=== PATIENT | female | born 1940 | race Caucasian/White ===

== ENCOUNTER → 2017-03-17 | Outpatient (CLI) | payer MEDICARE, BC ==
--- NOTE | 2017-03-17 11:04 | US ---
EXAMINATION TYPE: US abdomen complete DATE OF EXAM: 03/17/2017 10:02 AM COMPARISON: NONE CLINICAL HISTORY: K82.9 Disease of gallbladder. Abdominal pain EXAM MEASUREMENTS: Liver Length: 16.8 cm Gallbladder Wall: 0.3 cm CBD: 0.4 cm Spleen: 9.1 cm Right Kidney: 9.8 x 5.3 x 3.7 cm Left Kidney: 9.3 x 4.9 x 4.1 cm Pancreas: obscured by overlying bowel content Liver: visualized portions appear slightly heterogeneous Gallbladder: gallstones Evidence for sonographic Calles's sign: no CBD: wnl Spleen: granulomas Right Kidney: cystic areas, largest = 1.7 x 1.8 x 1.9cm Left Kidney: limited evaluation due to overlying bowel Upper IVC: wnl Abd Aorta: visualized portions appear wnl *Technical limitations due to patient's body habitus and large amount of overlying bowel content The liver is heterogenous. The intrahepatic portion of the IVC and proximal abdominal aorta are withi n normal limits. There is evidence of cholelithiasis. Common bile duct is unremarkable. The visual ized portions of the pancreas are homogenous. The spleen demonstrates calcified granulomas. Limited evaluation of the left kidney given overlying bowel content. Multiple cysts right kidney the largest measures about 1.7 x 1.8 x 1.9 cm. IMPRESSION: 1. Probable fatty liver. 2. Cholelithiasis. 3. Right renal cysts.
--- NOTE | 2017-03-18 07:50 | MM ---
Reason for exam: screening (asymptomatic). Last mammogram was performed 1 year and 11 months ago. History: Patient is postmenopausal. Benign core biopsy of the left breast, 1996. Took hormonal contraceptives for 10 years. Physical Findings: A clinical breast exam by your physician is recommended on an annual basis and results should be correlated with mammographic findings. MG 3D Screening Mammo W/Cad Bilateral CC and MLO view(s) were taken. Prior study comparison: April 21, 2015, bilateral MG screening mammo w CAD. July 06, 2013, bilateral digital screening mammo w/CAD. There are scattered fibroglandular densities. Benign calcifications. There is no discrete abnormality. No significant changes when compared with prior studies. ASSESSMENT: Benign, BI-RAD 2 RECOMMENDATION: Routine screening mammogram of both breasts in 1 year.
== END | disposition home or self-care (01) ==
LOC: RADUSWWP 08:55
PROVIDERS: ATTEND Family Medicine
DX: Z12.31 Encounter for screening mammogram for malignant neoplasm of breast (principal); K80.20 Calculus of gallbladder without cholecystitis without obstruction; Q61.02 Congenital multiple renal cysts
CPT/HCPCS: 77063; 76700; G0202

== ENCOUNTER → 2017-06-12 | Outpatient (CLI) | payer MEDICARE, BC ==
[~2017-06-12] MED LIST: DENOSUMAB 60 MG/ML 1 ML SYRINGE SQ ONE
[2017-06-12 14:19] VITALS: BP 140/74; PULSE 77; RESP 16; TEMP 97.8
== END | disposition home or self-care (01) ==
LOC: PROCWHC3 14:07
PROVIDERS: ATTEND Family Medicine
DX: M81.0 Age-related osteoporosis without current pathological fracture (principal)
CPT/HCPCS: 96372; J0897

== ENCOUNTER → 2017-09-16 | Outpatient (CLI) | payer MEDICARE, BC ==
--- NOTE | 2017-09-16 12:22 | XR ---
EXAMINATION TYPE: XR chest 2V DATE OF EXAM: 09/16/2017 COMPARISON: 10/05/2014 HISTORY: 77-year-old female with shortness of breath, dyspnea, and bronchitis TECHNIQUE: Frontal and lateral views FINDINGS: Heart is normal size. Aorta and pulmonary vasculature within normal limits. Asymmetric right hilar pr ominence may be summation artifact. Large hiatal hernia containing air-fluid level. Some focal periph eral left midlung opacity appears new. No pleural effusion. IMPRESSION: 1. Asymmetric right hilar prominence appears more defined but could represent summation shadow or und erlying pulmonary artery hypertension. Contrast-enhanced CT can exclude a hilar mass or lymphadenopat hy. 2. Possible patchy infiltrate at the peripheral left mid lung can also be evaluated by CT. 3. Large hiatal hernia with the stomach in the mid to lower thorax.
== END | disposition home or self-care (01) ==
LOC: RADXRMAIN 10:14
PROVIDERS: ATTEND Family Medicine
DX: K44.9 Diaphragmatic hernia without obstruction or gangrene (principal)
CPT/HCPCS: 71020

== ENCOUNTER → 2018-01-08 | Outpatient (CLI) | payer MEDICARE, BC ==
[~2018-01-08] MED LIST changes: +DENOSUMAB 60 MG/ML 1 ML SYRINGE SQ NR; -DENOSUMAB 60 MG/ML 1 ML SYRINGE SQ ONE
[2018-01-08 15:03] VITALS: BP 128/78; PULSE 91; RESP 16; TEMP 97.9
== END | disposition home or self-care (01) ==
LOC: PROCWHC3 14:40
PROVIDERS: ATTEND Family Medicine
DX: M81.0 Age-related osteoporosis without current pathological fracture (principal)
CPT/HCPCS: 96372; J0897

== ENCOUNTER 2018-02-23 11:06 | Day surgery (SDC) | payer MEDICARE, BC ==
[2018-02-19 10:03] VITALS: BMI 31.2
[~2018-02-23 11:06] MED LIST changes: -DENOSUMAB 60 MG/ML 1 ML SYRINGE SQ NR; +LACTATED RINGERS 1,000 ML IV SCH; +LIDOCAINE 1% 20 ML VIAL (10MG/ML) FOR IV START INTRADERMA PRN
[2018-02-23 11:33] VITALS: RESP 16; TEMP 97.5
[2018-02-23 11:41] LABS: Glucose,Whole Blood 107 mg/dL (75-99)
[2018-02-23] MEDS ORDERED: PROPOFOL 10 MG/ML 20 ML VIAL IV ONE (12:18)
--- NOTE | 2018-02-23 13:06 | P.PCN ---
Date of Procedure: 02/23/18 Procedure(s) Performed: Procedures: 1. Esophagogastroduodenoscopy and biopsy. 2. Total colonoscopy. Preoperative diagnosis: Gastroesophageal reflux disease and family history of colon cancer. Postoperative diagnosis: 1. Moderately sized hiatal hernia with low-grade distal esophagitis. 2. Mild antral gastritis. 3. Sigmoid diverticulosis with no evidence of acute diverticulitis, strictures, polyps or cancer. 4. Biopsies obtained from the esophagus. Preparation: HalfLytely prep. Sedation: Was provided by anesthesia. Brief clinical history: The patient is an 78-year-old female who is scheduled for this evaluation because of chronic reflux symptoms and family history of colon cancer in her sister. Her prior exam was in October 2012. The patient has no abdominal complaints, bleeding or anemia. Procedure: With the patient on her left lateral decubitus position and after informed consent and adequate sedation, I passed the Olympus-GIF 160 video upper endoscope through the cricopharyngeus down the esophagus GE junction was around 34-35 cm from the incisors and there was a moderately sized hiatal hernia. The distal esophagus showed LA grade B distal esophagitis but there were no strictures or Almanza's esophagus. The endoscope was then passed into the stomach which was insufflated with air and inspected in detail including the retroflex view in the cardia. There was some mottling and erythema in the antrum but no ulcers or erosions. Pyloric channel, duodenal bulb, post bulbar area and descending duodenum appeared within normal limits. Because of her symptoms and findings I obtained biopsies from the esophagus before the endoscope was withdrawn. I then proceeded to do colonoscopy. Perianal area did not show any fissures or fistulas. There were no masses felt on digital rectal examination. The Olympus CFQ 160L video colonoscope was then inserted in the rectum in the usual fashion and advanced to the cecum. There were multiple diverticular orifices noted scattered in the sigmoid with no evidence of acute diverticulitis or strictures. No polyps or tumors were seen. The mucosa appeared healthy. I retroflexed the endoscope in the rectum before the endoscope was withdrawn. The patient tolerated the procedure well. Plan: The patient was reassured. Will await biopsy results and make further plans based on her course and biopsy results. At her age, I did not recommend further screening for colon cancer and that can be kept as a contingency based on her course and overall health in the future in the future. She will follow- up with you as planned.
[2018-02-23 13:17] VITALS: BP 129/84; PULSE 69
== END 2018-02-23 14:03 | disposition home or self-care (01) ==
LOC: ORWHC2ENDO 11:06
DX: K22.10 Ulcer of esophagus without bleeding (principal); K21.0 Gastro-esophageal reflux disease with esophagitis; K57.30 Diverticulosis of large intestine without perforation or abscess without bleeding; K29.70 Gastritis, unspecified, without bleeding; I10 Essential (primary) hypertension; K44.9 Diaphragmatic hernia without obstruction or gangrene; E78.5 Hyperlipidemia, unspecified; I25.10 Atherosclerotic heart disease of native coronary artery without angina pectoris; M19.90 Unspecified osteoarthritis, unspecified site; J45.909 Unspecified asthma, uncomplicated; Z96.653 Presence of artificial knee joint, bilateral; Z79.899 Other long term (current) drug therapy; Z80.0 Family history of malignant neoplasm of digestive organs; Z85.828 Personal history of other malignant neoplasm of skin; Z86.718 Personal history of other venous thrombosis and embolism
CPT/HCPCS: 88305; 88312; 43239; 45378; J2704

== ENCOUNTER → 2018-08-20 | Outpatient (CLI) | payer MEDICARE, BC ==
[~2018-08-20] MED LIST changes: +DENOSUMAB 60 MG/ML 1 ML SYRINGE SQ ONE; -LACTATED RINGERS 1,000 ML IV SCH; -LIDOCAINE 1% 20 ML VIAL (10MG/ML) FOR IV START INTRADERMA PRN
[2018-08-20 14:22] VITALS: BP 129/75; PULSE 76; RESP 16; TEMP 98.3
== END | disposition home or self-care (01) ==
LOC: PROCWHC3 13:56
PROVIDERS: ATTEND Family Medicine
DX: M81.0 Age-related osteoporosis without current pathological fracture (principal)
CPT/HCPCS: 96372; J0897

== ENCOUNTER → 2018-11-25 | Outpatient (CLI) | payer MEDICARE, BC ==
--- NOTE | 2018-11-25 16:42 | BD ---
EXAMINATION TYPE: Axial Bone Density DATE OF EXAM: 11/25/2018 CLINICAL HISTORY: Height: 59 inches Weight: 168 FRAX RISK QUESTIONS: Alcohol (3 or more units per day): no Family History (Parent hip fracture): no Glucocorticoids (More than 3mos): inhaler perhaps "a couple times a month" patient unsure if inhaler has steroids (Ex: prednisone, prednisolone, methylprednisolone, dexamethasone, and hydrocortisone). History of Fracture in Adulthood: no, forearm as child Secondary Osteoporosis: 1. Type 1 Diabetes: no 2. Hyperthyroidism: no 3. Menopause before 45: no 4. Malnutrition: no 5. Chronic liver disease: no Rheumatoid Arthritis: no Current Tobacco Use: no RISK FACTORS HISTORY OF: Family History of Osteoporosis: probably mother Active: yes Diet low in dairy products/other sources of calcium: no Postmenopausal woman: yes Take estrogen and/or progesterone medications: not now How long: hormonal contraceptives about 10 years Lost more than 2 inches in height since high school: unsure, states height may have been about 61 inc hes at one time Frequent falls: no Poor Health: no Hyperparathyroidism: no Adrenal Insufficiency: no MEDICATIONS: Prednisone or other steroids: unsure if inhaler has steroids Thyroid Medications: no Osteoporosis Medications:yes Which medication: Prolia How Long: several years Additional Medications: blood pressure meds, vitamins, cholesterol Additional History: bilateral knee replacement EXAM MEASUREMENTS: Bone mineral densitometry was performed using the [employer] System. Bone mineral density as measured about the Lumbar spine is: ----- L1-L4(G/cm2): 1.137 T Score Values are as follows: ----- L2: -1.0 ----- L3: 0.0 ----- L4: -0.4 ----- L1-L4: -0.4 Bone mineral density has: Decreased -2.0% since study of: 04/21/2015 Bone mineral density about the R hip (g/cm2): 0.936 Bone mineral density about the L hip (g/cm2): 0.884 T Score values are as follows: -----R Neck: -0.7 -----L Neck: -1.1 -----R Total: 0.5 -----L Total: 0.2 Bone mineral density has: Increased 1.5 % since study of: 04/21/2015 IMPRESSION: Normal (Values between +1 and -1 indicate normal bone mass). Consider repeating this study in 5 year s or sooner if there is some new clinical indication. NOTE: T-SCORE=SD OF THE YOUNG ADULT MEAN.
== END | disposition home or self-care (01) ==
LOC: RADBDWWP 13:02
PROVIDERS: ATTEND Family Medicine
DX: N95.1 Menopausal and female climacteric states (principal)
CPT/HCPCS: 77080

== ENCOUNTER → 2019-03-05 | Outpatient (CLI) | payer MEDICARE, BC ==
[2019-03-05 14:15] VITALS: BP 172/80; PULSE 84; RESP 16; TEMP 98.6
== END | disposition home or self-care (01) ==
LOC: PROCWHC3 14:08
PROVIDERS: ATTEND Family Medicine
DX: M81.0 Age-related osteoporosis without current pathological fracture (principal)
CPT/HCPCS: 96372; J0897

== ENCOUNTER → 2019-08-30 | Outpatient (CLI) | payer MEDICARE, BC ==
--- NOTE | 2019-08-30 07:54 | US ---
EXAMINATION TYPE: US gallbladder DATE OF EXAM: 08/30/2019 COMPARISON: NONE CLINICAL HISTORY: 79-year-old female K81.9 Cholecystitis; K80.80 Cholelithiasis. cholelithiasis. TECHNIQUE: Multiple sonographic images of the right upper quadrant are obtained. FINDINGS: AQUATICS LIFEGUARD NOTES: Exam limitations due to body habitus and bowel gas. EXAM MEASUREMENTS: Liver Length: 15 cm Gallbladder Wall: .2 cm CBD: .4 cm Right Kidney: 9.2 x 3.0 x 2.8 cm Pancreas: Obscured by bowel gas Liver: Limited views show no focal lesion. Gallbladder: Suspected couple calculi measuring up to 5 mm. No abnormal distention, wall thickening, or pericholecystic fluid. Evidence for sonographic Calles's sign: No CBD: wnl Right Kidney: Cystic area upper pole 2.1 x 2.0 x 2.3 cm. No hydronephrosis. IMPRESSION: 1. Exam limitations due to body habitus and bowel gas. 2. Suggestion of underlying cholelithiasis with a calculi measuring up to 5 mm.
== END | disposition home or self-care (01) ==
LOC: RADUSWWP 06:56
PROVIDERS: ATTEND Family Medicine
DX: K80.10 Calculus of gallbladder with chronic cholecystitis without obstruction (principal)
CPT/HCPCS: 76705

== ENCOUNTER → 2019-09-22 | Outpatient (CLI) | payer MEDICARE, BC ==
[2019-09-22 12:33] LABS: INR 0.9 (<1.2); Prothrombin Time 10.1 sec (9.0-12.0)
[2019-09-22 12:47] LABS: Partial Thromboplastin Time 21.7 sec (22.0-30.0)
== END | disposition home or self-care (01) ==
LOC: LABPAT 10:59
PROVIDERS: ATTEND Surgery Plastic and Reconstructive Surgery
DX: Z01.812 Encounter for preprocedural laboratory examination (principal)
CPT/HCPCS: 85610; 85730

== ENCOUNTER 2019-09-30 07:55 | Day surgery (SDC) | payer MEDICARE, BC ==
[2019-09-29 08:24] VITALS: BMI 33.2
[~2019-09-30 07:55] MED LIST changes: -DENOSUMAB 60 MG/ML 1 ML SYRINGE SQ ONE; +LACTATED RINGERS 1,000 ML IV SCH; +LIDOCAINE 1% 20 ML VIAL (10MG/ML) FOR IV START INTRADERMA PRN; +ONDANSETRON 4 MG/2 ML VIAL IVP ONE
[2019-09-30 08:39] VITALS: TEMP 97.7
--- NOTE | 2019-09-30 08:39 | P.GSHP ---
History of Present Illness H&P Date: 09/30/19 CHIEF COMPLAINT: GERD HISTORY OF PRESENT ILLNESS: The patient is a 79-year-old female who presents reports gastroesophageal reflux disease. Upper endoscopy was offered for further evaluation and management. PAST MEDICAL HISTORY: Please see list. PAST SURGICAL HISTORY: Please see list. MEDICATIONS: Please see list. ALLERGIES: Please see list. SOCIAL HISTORY: No illicit drug use FAMILY HISTORY: No reports of Crohn disease or ulcerative colitis. REVIEW OF ORGAN SYSTEMS: CONSTITUTIONAL: No reports of fevers or chills. GI: Denies any blood in stools or constipation. PHYSICAL EXAM: VITAL SIGNS: Stable GENERAL: Well-developed and pleasant in no acute distress. HEENT: No scleral icterus. Extraocular movements grossly intact. Moist buccal mucosa. NECK: Supple without lymphadenopathy. CHEST: Unlabored respirations. Equal bilateral excursions. CARDIOVASCULAR: Regular rate and rhythm. Distal 2+ pulses. ABDOMEN: Soft, nondistended. MUSCULOSKELETAL: No clubbing, cyanosis, or edema. ASSESSMENT: 1. Gastroesophageal reflux disease PLAN: 1. Recommend proceeding with an upper endoscopy Past Medical History Past Medical History: Asthma, Cancer, Diabetes Mellitus, Deep Vein Thrombosis (DVT), GERD/Reflux, Hyperlipidemia, Hypertension, Myocardial Infarction ([place]), Osteoarthritis (OA) Additional Past Medical History / Comment(s): anemia, [id number] diet and checks CBG., skin cancer, gets SOB w/exertion, osteoporosis,frequent upset stomach for "a while" per pt Last Myocardial Infarction Date:: 20 yrs ago? History of Any Multi-Drug Resistant Organisms: None Reported Past Surgical History: Section, Joint Replacement Additional Past Surgical History / Comment(s): x2, Bilateral Total knees., cataracts. Past Anesthesia/Blood Transfusion Reactions: Motion Sickness, Postoperative Nausea & Vomiting (PONV) Past Psychological History: Anxiety, Depression Smoking Status: Never smoker Past Alcohol Use History: None Reported Past Drug Use History: None Reported - Past Family History Mother Family Medical History: Deep Vein Thrombosis (DVT) Sister(s) Family Medical History: Cancer, Deep Vein Thrombosis (DVT) Medications and Allergies Home Medications Medication Instructions Recorded Confirmed Type Lisinopril [Zestril] 10 mg PO HS 10/17/14 09/29/19 History Sertraline HCl [Zoloft] 200 mg PO HS 10/17/14 09/29/19 History Albuterol Inhaler [Ventolin Hfa 1 - 2 puff INHALATION Q6HR PRN 02/19/18 09/29/19 History Inhaler] Atorvastatin Calcium [Lipitor] 10 mg PO HS 02/19/18 09/29/19 History Esomeprazole Magnesium [NexIUM] 40 mg PO Q2D 02/19/18 09/29/19 History Ferrous Sulfate [Feosol] 65 mg PO DAILY 02/19/18 09/29/19 History Allergies Allergy/AdvReac Type Severity Reaction Status Date / Time No Known Allergies Allergy Verified 09/29/19 08:20
[2019-09-30 08:41] LABS: Glucose,Whole Blood 104 mg/dL (75-99)
[2019-09-30] MEDS ORDERED: PROPOFOL 10 MG/ML 20 ML VIAL IV ONE (08:58)
[2019-09-30] MEDS ORDERED: LIDOCAINE 1% INJ 10MG/ML (20 ML MDV) ONE (08:58)
--- NOTE | 2019-09-30 09:18 | P.PCN ---
Date of Procedure: 09/30/19 Description of Procedure: PREOPERATIVE DIAGNOSIS: Gastroesophageal reflux disease. Chronic anemia POSTOPERATIVE DIAGNOSIS: Chronic anemia Gastritis. Gastroesophageal reflux disease. Diaphragmatic hiatal hernia Mid esophageal ulcer OPERATION: Esophagogastroduodenoscopy with biopsies along antrum and esophageal ulcer SURGEON: Rochelle Morrow MD ANESTHESIA: MAC. INDICATIONS: The patient is a 79-year-old female who presents with a history of reflux disease. Benefits and risks of the procedure were described. Informed consent was obtained. DESCRIPTION: The patient was brought into the endoscopy suite and laid in the left lateral decubitus position. An Olympus gastroscope was passed along the posterior oropharynx down to the distal esophagus where the squamocolumnar junction was encountered at 31 cm from the incisors. The stomach was entered and no bile reflux was found. Additional findings are listed below. Biopsies with cold forceps were obtained of the antrum. The first through third portion of the duodenum was examined and unremarkable. Retroflexion of the scope confirmed Hill grade 4 lower esophageal valve. The squamocolumnar junction demonstrated LA grade C erosive esophagitis. The stomach was desufflated. The patient tolerated the procedure well. FINDINGS: Squamocolumnar junction 31 cm from the incisors. Diaphragmatic hiatus at 40 cm. Hiatal hernia, 9 cm, paraesophageal hiatal hernia type 3 Hill grade 4 lower esophageal valve. LA grade C erosive esophagitis with ulcers and biopsies obtained No active duodenitis. Chronic gastritis RECOMMENDATIONS: 1. Recommend repair of large hiatal hernia 2. Recommend esophageal manometry for esophageal dysmotility 3. Recommend fluoroscopy esophagram for severity of hiatal hernia and/or CT chest Plan - Discharge Summary Discharge Rx Participant: No New Discharge Prescriptions: New Omeprazole 40 mg PO DAILY #30 capsule.dr Discontinued Esomeprazole Magnesium [NexIUM] 40 mg PO Q2D No Action Sertraline HCl [Zoloft] 200 mg PO HS Lisinopril [Zestril] 10 mg PO HS Ferrous Sulfate [Feosol] 65 mg PO DAILY Atorvastatin Calcium [Lipitor] 10 mg PO HS Albuterol Inhaler [Ventolin Hfa Inhaler] 1 - 2 puff INHALATION Q6HR PRN PRN Reason: Shortness Of Breath Discharge Medication List Lisinopril [Zestril] 10 mg PO HS 10/17/14 [History] Sertraline HCl [Zoloft] 200 mg PO HS 10/17/14 [History] Albuterol Inhaler [Ventolin Hfa Inhaler] 1 - 2 puff INHALATION Q6HR PRN 02/19/18 [History] Atorvastatin Calcium [Lipitor] 10 mg PO HS 02/19/18 [History] Ferrous Sulfate [Feosol] 65 mg PO DAILY 02/19/18 [History] Omeprazole 40 mg PO DAILY #30 capsule. 09/30/19 [Rx] Follow up Appointment(s)/Referral(s): Rochelle Morrow MD [STAFF PHYSICIAN] - 10/12/19 Patient Instructions/Handouts: Peptic Ulcer (DC), Hiatal Hernia (DC), Diet for Stomach Ulcers and Gastritis (ED), Esophagitis (ED) Discharge Disposition: HOME SELF-CARE
[2019-09-30 09:19] VITALS: RESP 16
[2019-09-30 09:42] VITALS: BP 123/169; PULSE 70
== END 2019-09-30 09:53 | disposition home or self-care (01) ==
LOC: ORWHC2ENDO 07:55
PROVIDERS: ATTEND Surgery Plastic and Reconstructive Surgery
DX: K21.0 Gastro-esophageal reflux disease with esophagitis (principal); D53.9 Nutritional anemia, unspecified; K44.9 Diaphragmatic hernia without obstruction or gangrene; K22.10 Ulcer of esophagus without bleeding; K29.50 Unspecified chronic gastritis without bleeding; I11.0 Hypertensive heart disease with heart failure; I50.9 Heart failure, unspecified; I49.9 Cardiac arrhythmia, unspecified; J44.9 Chronic obstructive pulmonary disease, unspecified; G47.33 Obstructive sleep apnea (adult) (pediatric); F17.200 Nicotine dependence, unspecified, uncomplicated; R56.9 Unspecified convulsions; E11.9 Type 2 diabetes mellitus without complications; E78.5 Hyperlipidemia, unspecified; I25.2 Old myocardial infarction; M19.90 Unspecified osteoarthritis, unspecified site; M81.0 Age-related osteoporosis without current pathological fracture; F32.9 Major depressive disorder, single episode, unspecified; F41.9 Anxiety disorder, unspecified; Z86.718 Personal history of other venous thrombosis and embolism; Z98.890 Other specified postprocedural states; Z85.828 Personal history of other malignant neoplasm of skin; Z79.899 Other long term (current) drug therapy; Z80.0 Family history of malignant neoplasm of digestive organs; K31.9 Disease of stomach and duodenum, unspecified
CPT/HCPCS: 88305; 43239; J2001; J2704

== ENCOUNTER → 2019-10-28 | Outpatient (CLI) | payer MEDICARE, BC ==
[2019-10-28 10:28] LABS: HCT 42.9 % (34.0-46.0); HGB 13.1 gm/dL (11.4-16.0); MCHC 30.5 g/dL (31.0-37.0); MCV 88.6 fL (80.0-100.0); Mean Platelet Volume 8.8; Platelet Count 125 k/uL (150-450); RBC 4.84 m/uL (3.80-5.40); RDW 14.7 % (11.5-15.5); WBC 4.6 k/uL (3.8-10.6)
--- NOTE | 2019-10-28 11:12 | CT ---
EXAMINATION TYPE: CT chest w con DATE OF EXAM: 10/28/2019 COMPARISON: Most recent chest x-ray here September 16, 2017 HISTORY: Lung mass CT DLP: 410 mGycm. Automated Exposure Control for Dose Reduction was Utilized. TECHNIQUE: CT scan of the thorax is performed following with IV Contrast, patient injected with 100 ml mL of Isovue 300. FINDINGS: LUNGS: Mild anterior biapical linear scarring. Some additional linear scarring in the right middle lo be near axial image 29 and scattered throughout the lingula and left lower lobes. No pleural effusion or pneumothorax is evident. Tracheobronchial tree is patent. MEDIASTINUM: There are no greater than 1 cm hilar or mediastinal lymph nodes. No cardiomegaly or pe ricardial effusion is seen. Heart is pushed anteriorly due to large fixed hiatal hernia or intrathor acic stomach which was back in 2017 and has abnormal twisting with greater curvature more superior po sition than lesser curvature. Herniation of mesenteric vessels also identified inferiorly. Beginning in the left lower lobe pulmonary artery there is eccentric hypodensity after lingular and u pper lobe takeoff beginning on axial image 22 extending through 27 consistent with age-indeterminate partially occlusive thrombus. There is additional segmental or subsegmental partially occlusive age i ndeterminate thrombus in the right lower lobe branches noted with irregular areas of low density felt present centrally. No abnormal RV dilatation. Main pulmonary artery measures 2.8 cm diameter image 2 3. OTHER: A few simple-appearing thin-walled cysts visualized portion of right kidney. Multilevel spurri ng in the spine. Exaggerated thoracic kyphosis with mild to moderate multilevel spurring. IMPRESSION: 1. No suspicious nodules or masses or thoracic adenopathy. 2. Intrathoracic stomach with abnormal twisting not significantly changed from 2017. 3. Age-indeterminate partially occlusive bilateral lower lung pulmonary embolism. Critical results of pulmonary embolism communicated to ordering surgeon via telephone at time of dict ation. She requested and I called her office who is going to contact patient to come to emergency laci m for further workup and/or treatment. A Document Only message has been documented for Rochelle Morrow MD in the [employer] Result system on 10/28/2019 11:09 AM, Message ID [id number].
== END | disposition home or self-care (01) ==
LOC: RADCTMAIN 08:09
PROVIDERS: ATTEND Surgery Plastic and Reconstructive Surgery
DX: R91.8 Other nonspecific abnormal finding of lung field (principal)
CPT/HCPCS: 82565; 84520; 85027; 71260; 36415; Q9967

== ENCOUNTER 2019-11-07 09:47 | Emergency (ER) | payer MEDICARE, BC ==
[2019-11-07 09:56] VITALS: RESP 18
[2019-11-07] MEDS ORDERED: SODIUM CHLORIDE 0.9% 1,000 ML IV STA ×2 (10:01)
--- NOTE | 2019-11-07 10:09 | ED ---
General Adult HPI - General Chief complaint: Syncope Stated complaint: syncope Time Seen by Provider: 11/07/19 09:51 Source: patient, family, EMS, RN notes reviewed Mode of arrival: EMS Limitations: no limitations - History of Present Illness Initial comments: Patient is a pleasant 79-year-old female presenting to the emergency department following syncopal episode. Episode occurred at some point through the night when patient got up to use the restroom. Patient is unclear how long she was on the ground for however feels it may have been for a couple of hours or more. Patient did strike her face. Patient is on Lovenox injections for recent his tory of DVT and pulmonary embolism. Patient states she does have some abdominal discomfort. Patient complains of some milddiscomfort. Patient denies headache or confusion. No isolated area of weakness however patient was too generally weak to get up off the floor. Patient is on iron and always has dark stools, no change. - Related Data Home Medications Medication Instructions Recorded Confirmed Lisinopril [Zestril] 10 mg PO HS 10/17/14 10/27/19 Sertraline HCl [Zoloft] 200 mg PO HS 10/17/14 10/27/19 Albuterol Inhaler [Ventolin Hfa 1 - 2 puff INHALATION Q6HR PRN 02/19/18 10/27/19 Inhaler] Atorvastatin Calcium [Lipitor] 10 mg PO HS 02/19/18 10/27/19 Ferrous Sulfate [Feosol] 65 mg PO DAILY 02/19/18 10/27/19 Denosumab [Prolia] 60 mg SQ Q30D 10/27/19 10/27/19 Omeprazole 40 mg PO HS 10/27/19 10/27/19 Allergies Allergy/AdvReac Type Severity Reaction Status Date / Time No Known Allergies Allergy Verified 10/27/19 14:31 Review of Systems ROS Statement: Those systems with pertinent positive or pertinent negative responses have been documented in the HPI. ROS Other: All systems not noted in ROS Statement are negative. Constitutional: Denies: fever Eyes: Denies: eye pain ENT: Denies: ear pain Respiratory: Denies: cough, dyspnea Cardiovascular: Denies: chest pain Endocrine: Denies: fatigue Gastrointestinal: Reports: as per HPI, abdominal pain Genitourinary: Denies: dysuria Musculoskeletal: Denies: back pain Skin: Denies: rash Neurological: Reports: as per HPI. Denies: headache, confusion Past Medical History Past Medical History: Asthma, Deep Vein Thrombosis (DVT), GERD/Reflux, Hyperlipidemia, Hypertension, Myocardial Infarction (ID), Osteoarthritis (OA), Pulmonary Embolus (PE) Additional Past Medical History / Comment(s): anemia, [id number] diet and checks CBG., skin cancer, states ID 20 yrs ago., States unable to walk distance. OSTEOPOROSIS. Last Myocardial Infarction Date:: 20 yrs ago? History of Any Multi-Drug Resistant Organisms: None Reported Past Surgical History: Section, Joint Replacement Additional Past Surgical History / Comment(s): x2, Bilateral Total knees., cataracts. Past Anesthesia/Blood Transfusion Reactions: Motion Sickness, Postoperative Nausea & Vomiting (PONV) Past Psychological History: Anxiety, Depression Smoking Status: Never smoker Past Alcohol Use History: None Reported Past Drug Use History: None Reported - Past Family History Mother Family Medical History: Deep Vein Thrombosis (DVT) Sister(s) Family Medical History: Cancer, Deep Vein Thrombosis (DVT) General Exam Limitations: no limitations General appearance: alert Head exam: Present: other (Forehead and nasal ecchymosis) Eye exam: Present: normal appearance, PERRL, EOMI. Absent: nystagmus ENT exam: Present: normal oropharynx, other (Nasal tenderness and mild swelling and ecchymosis) Neck exam: Present: normal inspection. Absent: tenderness Respiratory exam: Present: normal lung sounds bilaterally Cardiovascular Exam: Present: regular rate, normal rhythm Expanded Peripheral pulses: 2+: Radial (R), Radial (L), Dorsalis Pedis (R), Dorsalis Pedis (L) GI/Abdominal exam: Present: soft. Absent: tenderness Extremities exam: Present: normal inspection, full ROM. Absent: tenderness Neurological exam: Present: alert, oriented X3, CN II-XII intact. Absent: motor sensory deficit Expanded Neurological exam: Present: protecting the airway Patient oriented to: Present: person, place, time Speech: Present: fluid speech Cranial nerves: EOM's Intact: Normal Motor strength exam: RUE: 5, LUE: 5, RLE: 5, LLE: 5 Eye Response: (4) open spontaneously Motor Response: (6) obeys commands Verbal Response: (5) oriented Psychiatric exam: Present: normal affect, normal mood Skin exam: Present: normal color Course Vital Signs 11/07/19 11/07/19 11/07/19 09:49 10:39 11:00 Pulse Rate 73 70 72 Pulse Rate [ Patient Access Manager ] Respiratory 18 18 18 Rate Blood Pressure 79/49 99/74 O2 Sat by Pulse 100 Oximetry 11/07/19 11/07/19 11/07/19 11:06 11:30 12:00 Pulse Rate 71 70 Pulse Rate [ 70 Patient Access Manager ] Respiratory 18 18 Rate Blood Pressure 91/57 O2 Sat by Pulse Oximetry 11/07/19 12:41 Pulse Rate 71 Pulse Rate [ Patient Access Manager ] Respiratory 18 Rate Blood Pressure 94/53 O2 Sat by Pulse 98 Oximetry - Reevaluation(s) Reevaluation #1: 11/07/19 12:13 Case discussed in detail with Dr. Kaplan who will come evaluate the patient. She is agreeable with medication for reversal and recommends a central. Case was discussed with pharmacy who recommends protamine, 50 mg. Patient is on Lovenox 120 mg with last dose received at 8:30 PM last night. Patient reevaluated and resting comfortably in bed. Patient states abdominal discomfort did start prior to her fall. Patient states abdominal discomfort is mild at this time and only bothers her with palpating. Patient and family are updated on results and plan. Blood pressure is on the upper 80s systolic. 11/07/19 12:50 Dr. Kaplan did come evaluate patient. Dr. Kaplan and family both request transfer back to [facility]. Case was discussed with Dr. Fleming at [facility] who will accept transfer. 11/07/19 12:53 Patient will have one unit of blood with her for transfer. EKG Findings - EKG Comments: EKG Findings:: Sinus rhythm at 77. CO 88. QRS 96. QT 404. QTC 457. Left axis. Short CO. No acute ST change. Medical Decision Making - Lab Data Result diagrams: 11/07/19 10:01 11/07/19 10:01 Lab Results 11/07/19 11/07/19 11/07/19 Range/Units 10:01 10:01 10:01 WBC 11.1 H (3.8-10.6) k/uL RBC 3.51 L (3.80-5.40) m/uL Hgb 10.1 L D (11.4-16.0) gm/dL Hct 31.2 L (34.0-46.0) % MCV 89.1 (80.0-100.0) fL MCH 28.7 (25.0-35.0) pg MCHC 32.2 (31.0-37.0) g/dL RDW 14.7 (11.5-15.5) % Plt Count 197 (150-450) k/uL Neutrophils % 83 % Lymphocytes % 11 % Monocytes % 4 % Eosinophils % 0 % Basophils % 0 % Neutrophils # 9.2 H (1.3-7.7) k/uL Lymphocytes # 1.2 (1.0-4.8) k/uL Monocytes # 0.5 (0-1.0) k/uL Eosinophils # 0.1 (0-0.7) k/uL Basophils # 0.0 (0-0.2) k/uL Hypochromasia Slight PT 10.4 (9.0-12.0) sec INR 1.0 (<1.2) APTT 24.7 (22.0-30.0) sec Sodium 141 (137-145) mmol/L Potassium 4.6 (3.5-5.1) mmol/L Chloride 109 H (98-107) mmol/L Carbon Dioxide 24 (22-30) mmol/L Anion Gap 8 mmol/L BUN 39 H (7-17) mg/dL Creatinine 1.42 H (0.52-1.04) mg/dL Est GFR (CKD-EPI)AfAm 40 (>60 ml/min/1.73 sqM) Est GFR (CKD-EPI)NonAf 35 (>60 ml/min/1.73 sqM) Glucose 180 H (74-99) mg/dL POC Glucose (mg/dL) (75-99) mg/dL POC Glu Pumper Gager ID Calcium 8.8 (8.4-10.2) mg/dL Magnesium 1.9 (1.6-2.3) mg/dL Total Bilirubin 0.5 (0.2-1.3) mg/dL AST 35 (14-36) U/L ALT 38 H (4-34) U/L Alkaline Phosphatase 53 (38-126) U/L Creatine Kinase 54 (30-135) U/L Troponin I (0.000-0.034) ng/mL Total Protein 5.5 L (6.3-8.2) g/dL Albumin 3.1 L (3.5-5.0) g/dL Urine Color Urine Appearance (Clear) Urine pH (5.0-8.0) Ur Specific [place] (1.001-1.035) Urine Protein (Negative) Urine Glucose (UA) (Negative) Urine Ketones (Negative) Urine Blood (Negative) Urine Nitrite (Negative) Urine Bilirubin (Negative) Urine Urobilinogen (<2.0) mg/dL Ur Leukocyte Esterase (Negative) Urine RBC (0-5) /hpf Urine WBC (0-5) /hpf Ur Squamous Epith Cells (0-4) /hpf Hyaline Casts (0-2) /lpf Urine Mucus (None) /hpf Stool Occult Blood (Negative) 11/07/19 11/07/19 11/07/19 Range/Units 10:01 10:02 11:49 WBC (3.8-10.6) k/uL RBC (3.80-5.40) m/uL Hgb (11.4-16.0) gm/dL Hct (34.0-46.0) % MCV (80.0-100.0) fL MCH (25.0-35.0) pg MCHC (31.0-37.0) g/dL RDW (11.5-15.5) % Plt Count (150-450) k/uL Neutrophils % % Lymphocytes % % Monocytes % % Eosinophils % % Basophils % % Neutrophils # (1.3-7.7) k/uL Lymphocytes # (1.0-4.8) k/uL Monocytes # (0-1.0) k/uL Eosinophils # (0-0.7) k/uL Basophils # (0-0.2) k/uL Hypochromasia PT (9.0-12.0) sec INR (<1.2) APTT (22.0-30.0) sec Sodium (137-145) mmol/L Potassium (3.5-5.1) mmol/L Chloride (98-107) mmol/L Carbon Dioxide (22-30) mmol/L Anion Gap mmol/L BUN (7-17) mg/dL Creatinine (0.52-1.04) mg/dL Est GFR (CKD-EPI)AfAm (>60 ml/min/1.73 sqM) Est GFR (CKD-EPI)NonAf (>60 ml/min/1.73 sqM) Glucose (74-99) mg/dL POC Glucose (mg/dL) 166 H (75-99) mg/dL POC Glu Pumper Gager ID Renu Almanza Calcium (8.4-10.2) mg/dL Magnesium (1.6-2.3) mg/dL Total Bilirubin (0.2-1.3) mg/dL AST (14-36) U/L ALT (4-34) U/L Alkaline Phosphatase (38-126) U/L Creatine Kinase (30-135) U/L Troponin I <0.012 (0.000-0.034) ng/mL Total Protein (6.3-8.2) g/dL Albumin (3.5-5.0) g/dL Urine Color Yellow Urine Appearance Cloudy H (Clear) Urine pH 5.5 (5.0-8.0) Ur Specific [place] 1.024 (1.001-1.035) Urine Protein 1+ H (Negative) Urine Glucose (UA) Negative (Negative) Urine Ketones Negative (Negative) Urine Blood Negative (Negative) Urine Nitrite Negative (Negative) Urine Bilirubin Negative (Negative) Urine Urobilinogen <2.0 (<2.0) mg/dL Ur Leukocyte Esterase Negative (Negative) Urine RBC 1 (0-5) /hpf Urine WBC 4 (0-5) /hpf Ur Squamous Epith Cells <1 (0-4) /hpf Hyaline Casts 50 H (0-2) /lpf Urine Mucus Moderate H (None) /hpf Stool Occult Blood (Negative) 11/07/19 Range/Units 11:50 WBC (3.8-10.6) k/uL RBC (3.80-5.40) m/uL Hgb (11.4-16.0) gm/dL Hct (34.0-46.0) % MCV (80.0-100.0) fL MCH (25.0-35.0) pg MCHC (31.0-37.0) g/dL RDW (11.5-15.5) % Plt Count (150-450) k/uL Neutrophils % % Lymphocytes % % Monocytes % % Eosinophils % % Basophils % % Neutrophils # (1.3-7.7) k/uL Lymphocytes # (1.0-4.8) k/uL Monocytes # (0-1.0) k/uL Eosinophils # (0-0.7) k/uL Basophils # (0-0.2) k/uL Hypochromasia PT (9.0-12.0) sec INR (<1.2) APTT (22.0-30.0) sec Sodium (137-145) mmol/L Potassium (3.5-5.1) mmol/L Chloride (98-107) mmol/L Carbon Dioxide (22-30) mmol/L Anion Gap mmol/L BUN (7-17) mg/dL Creatinine (0.52-1.04) mg/dL Est GFR (CKD-EPI)AfAm (>60 ml/min/1.73 sqM) Est GFR (CKD-EPI)NonAf (>60 ml/min/1.73 sqM) Glucose (74-99) mg/dL POC Glucose (mg/dL) (75-99) mg/dL POC Glu Pumper Gager ID Calcium (8.4-10.2) mg/dL Magnesium (1.6-2.3) mg/dL Total Bilirubin (0.2-1.3) mg/dL AST (14-36) U/L ALT (4-34) U/L Alkaline Phosphatase (38-126) U/L Creatine Kinase (30-135) U/L Troponin I (0.000-0.034) ng/mL Total Protein (6.3-8.2) g/dL Albumin (3.5-5.0) g/dL Urine Color Urine Appearance (Clear) Urine pH (5.0-8.0) Ur Specific [place] (1.001-1.035) Urine Protein (Negative) Urine Glucose (UA) (Negative) Urine Ketones (Negative) Urine Blood (Negative) Urine Nitrite (Negative) Urine Bilirubin (Negative) Urine Urobilinogen (<2.0) mg/dL Ur Leukocyte Esterase (Negative) Urine RBC (0-5) /hpf Urine WBC (0-5) /hpf Ur Squamous Epith Cells (0-4) /hpf Hyaline Casts (0-2) /lpf Urine Mucus (None) /hpf Stool Occult Blood Positive H (Negative) - Radiology Data Radiology results: report reviewed (Computed tomography scan of the brain reveals no acute process. There is nasal bone fracture. Computed tomography scan of the abdomen and pelvis does show bilateral rectus sheath hematoma suspected 3.5 cm. Large abnormal continuation the pelvis suspected 15 cm suspicious for intra-abdominal and intrapelvic hematoma. Fluid also seen adjacent to Gutters and adjacent to the spleen. No spleen abnormality.), image reviewed (Chest x-ray shows no acute process. Nasal bone x-ray shows fracture) Critical Care Time Critical Care Time: Yes Total Critical Care Time: 33 Disposition Clinical Impression: Rectus sheath hematoma, Syncope, Pelvic hematoma Disposition: OTHER INSTITUTION NOT DEFINED Is patient prescribed a controlled substance at d/c from ED?: No Referrals: Semaj Jimenez DO [Primary Care Provider] - 1-2 days Time of Disposition: 12:52 - Out of Hospital Transfer - Req. Specs Out of Hospital Transfer - Requested Specifics: Other Emergency Center
[2019-11-07 10:17] LABS: Glucose,Whole Blood 166 mg/dL (75-99)
[2019-11-07 10:18] LABS: Basophils % (A) 0 %; Eosinophils # (A) 0.1 k/uL (0-0.7); Eosinophils % (A) 0 %; HCT 31.2 % (34.0-46.0); Hypochromasia Slight; Lymphocytes # (A) 1.2 k/uL (1.0-4.8); Lymphocytes % (A) 11 %; MCH 28.7 pg (25.0-35.0); MCHC 32.2 g/dL (31.0-37.0); MCV 89.1 fL (80.0-100.0); Mean Platelet Volume 9.1; Monocytes # (A) 0.5 k/uL (0-1.0); Monocytes % (A) 4 %; Neutrophils # (A) 9.2 k/uL (1.3-7.7); Neutrophils % (A) 83 %; Platelet Count 197 k/uL (150-450); RBC 3.51 m/uL (3.80-5.40); RDW 14.7 % (11.5-15.5); WBC 11.1 k/uL (3.8-10.6)
[2019-11-07 10:30] LABS: HGB 10.1 gm/dL (11.4-16.0)
[2019-11-07 10:31] LABS: Partial Thromboplastin Time 24.7 sec (22.0-30.0); Prothrombin Time 10.4 sec (9.0-12.0)
[2019-11-07 10:33] LABS: Albumin 3.1 g/dL (3.5-5.0); Calcium 8.8 mg/dL (8.4-10.2); Magnesium 1.9 mg/dL (1.6-2.3); Potassium 4.6 mmol/L (3.5-5.1); Total Bilirubin 0.5 mg/dL (0.2-1.3); Total Protein 5.5 g/dL (6.3-8.2)
--- NOTE | 2019-11-07 11:05 | XR ---
EXAMINATION TYPE: XR chest 2V DATE OF EXAM: 11/07/2019 COMPARISON: 09/16/2017 TECHNIQUE: PA and lateral views submitted. HISTORY: Syncope FINDINGS: The lungs are clear and there is no pneumothorax, pleural effusion, or focal pneumonia. Large hiata l hernia noted. Arthropathy shoulders. Degenerative change spine. Mild prominence of the right hilum persists. IMPRESSION: 1. No acute process.
--- NOTE | 2019-11-07 11:06 | XR ---
EXAMINATION TYPE: XR nasal bone DATE OF EXAM: 11/07/2019 COMPARISON: NONE HISTORY: Pain TECHNIQUE: 4 views submitted FINDINGS: There is a linear lucency through the nasal bridge. No significant depression. Maxillary st yloid intact. Mucosal thickening involving the maxillary sinuses compatible with sinusitis. Nasal sep aide deviation noted. IMPRESSION: Nondepressed nasal bridge fracture.
--- NOTE | 2019-11-07 11:47 | CT ---
EXAMINATION TYPE: CT brain wo con DATE OF EXAM: 11/07/2019 COMPARISON: 04/15/2011 HISTORY: Syncopal episode CT DLP: 1098.4 mGycm Automated exposure control for dose reduction was used. FINDINGS: There is no midline shift or mass effect. Calvarium intact. Mild generalized degenerative change. Low -attenuation the white matter is compatible with remote microvascular ischemia. Findings similar to t he prior exam. Fracture of the nasal bridge suspected. Hyperostosis of the calvarium. IMPRESSION: DEGENERATIVE AND NONSPECIFIC WHITE MATTER CHANGES MOST TYPICAL REMOTE ISCHEMIA. FRACTURE OF THE NASAL BRIDGE SUSPECTED
--- NOTE | 2019-11-07 12:01 | CT ---
EXAMINATION TYPE: CT abdomen pelvis w con DATE OF EXAM: 11/07/2019 COMPARISON: 10/28/2012 HISTORY: Stomach pains CT DLP: 1069 mGycm Automated exposure control for dose reduction was used. CONTRAST: CT scan of the abdomen pelvis is performed with IV Contrast, patient injected with 80 mL of Isovue 30 0. FINDINGS- LUNG BASES-by basilar subsegmental atelectasis suspected.. LIVER/GB- No gross abnormality is appreciated. PANCREAS- No gross abnormality is seen. SPLEEN-there is a trace amount fluid surrounding the spleen but no abnormal attenuation within the sp bryan clinically.. ADRENALS- No gross abnormality is seen. KIDNEYS/BLADDER- no hydronephrosis or nephrolithiasis. Bilateral simple appearing renal cysts noted.. BOWEL-bowel gas pattern nonspecific with changes of diverticulosis.. LYMPH NODES- No greater than 1cm abdominal or pelvic lymph nodes areappreciated. OSSEOUS STRUCTURES-hypertrophic and degenerative change of the spine noted.. OTHER- there is a large hiatal hernia. Aorta of normal caliber. There is thickening the wall the dis aide esophagus which should be correlated clinically. There is thickening of the rectus abdominal musculature bilaterally suspicious for bilateral rectus s raquel hematomas. There is a large area of abnormal attenuation within the pelvis measuring at least 1 5 cm suspicious for a hemorrhage. Difficult to identify the bladder due to the presence of this abnor mal attenuation. Report called to the patient was here physician. Fluid within the bilateral paracoli c gutters noted. Uterus is atrophic with calcifications. IMPRESSION- 1. Bilateral sizable rectus sheath hematoma suspected measuring 3.5 cm in diameter. 2. Large area of abnormal attenuation involving the pelvis with suspected compression of the bladder measuring at least 15 cm suspicious for an intra-abdominal and intrapelvic hematoma. Fluid is also se en in the paracolic gutters as well as adjacent to the spleen. No definite abnormal attenuation withi n the spleen is identified to suggest laceration or contusion. Correlate clinically. 3. Large hiatal hernia with wall thickening of the distal esophagus which should be correlated clinic ally for esophagitis or mucosal lesion.
[2019-11-07] MEDS ORDERED: Kcentra PER PHARMACY 1 EACH MISC MISCELLANE PRN (12:05)
[2019-11-07 12:13] LABS: Appearance,Urine Cloudy (Clear); Bilirubin,Urine Negative (Negative); Blood,Urine Negative (Negative); Color,Urine Yellow; Glucose,Urine (UA) Negative (Negative); Hyaline Casts,Urine 50 /lpf (0-2); Ketones,Urine Negative (Negative); Leukocyte Esterase,Urine Negative (Negative); Mucus,Urine Moderate /hpf; Nitrite,Urine Negative (Negative); PH, Urine 5.5 (5.0-8.0); Protein,Urine 1+ (Negative); RBC,Urine 1 /hpf (0-5); Specific Gravity,Urine 1.024 (1.001-1.035); Squamous Epithelial Cell,Urine <1 /hpf (0-4); Urobilinogen,Urine <2.0 mg/dL (<2.0); WBC,Urine 4 /hpf (0-5)
[2019-11-07] MEDS ORDERED: PROTAMINE SULFATE 10 MG/ML 5 ML VIAL IV ONE (12:30)
--- NOTE | 2019-11-07 12:58 | P.GSCN ---
History of Present Illness Consult date: 11/07/19 History of present illness: CHIEF COMPLAINT: Rectus sheath hematoma HISTORY OF PRESENT ILLNESS: The patient is a 79-year-old female known to me from workup for gallstones over a month ago. She reported having gastroesophageal reflux disease FOR which an upper endoscopy was performed with the last 3-4 weeks. Finding at that time demonstrated a large paraesophageal hiatal hernia including esophageal ulceration. As result of this finding, a CT chest was obtained 2 weeks ago. Immediately bilateral pulmonary embolus were identified and the patient was redirected to the local emergency room. Per request the patient's family, she she was taken to [facility] for additional care. She was admitted at [facility] for at least 4 days from October 28 to October 31 where additional workup of the bilateral groins demonstrated bilateral femoral DVTs. Patient had a hypercoagulable workup including for malignancy per discussion with her daughter who provides all history. Initially, patient's being evaluated for oral ant icoagulant but secondary no coverage by her insurance, she was sent home on subcutaneous Lovenox therapeutic dose. Patient reports as of Friday, 5 days ago she was not feeling well. She developed bruising along her abdomen 2 days ago including lower abdominal pain. Yesterday she had a syncopal episode and fell within her bathroom and found down. No reports of hematuria. She reports urinary incontinence. She was taken to the local emergency room with findings of rectus sheath hematoma. PAST MEDICAL HISTORY: See list. PAST SURGICAL HISTORY: See list. MEDICATIONS: See list. ALLERGIES: See list. SOCIAL HISTORY: See list. FAMILY HISTORY: See list. All sisters with DVTs and pulmonary embolisms. Sisters also had [place] filter. Strong family history of paraesophageal hia aide hernias REVIEW OF ORGAN SYSTEMS: CONSTITUTIONAL: No fevers or chills. EYES: Denies any trouble with vision. No glasses. HEENT: No difficulties with hearing. No nosebleeds. Has difficulty swallowing. RESPIRATORY: Denies pneumonia. Has troubles with breathing or dyspnea on exertion. CARDIOVASCULAR: No current chest pain, palpitations, or recent heart attacks. GASTROINTESTINAL: Has gallstones. Last colonoscopy within one year. Has chronic anemia. GENITOURINARY: Denies any blood in urine or increased urinary frequency. NEUROLOGICAL: Denies any numbness or tingling along the distal extremities. No seizure disorders or headaches. MUSCULOSKELETAL: Has back pain, stiffness or joint arthritis. SKIN: No current skin cancer. No rash. PSYCHIATRIC: Denies current depression or suicidal thoughts. ENDOCRINE: Denies current thyroid disorders. Denies any blood sugar glucose intolerance. HEME/LYMPHATIC: Denies any lumps and bumps around the neck. New deep venous thrombosis of the legs and pulmonary embolism currently on therapeutic Lovenox ALLERGY/IMMUNOLOGY: No immunoglobulin therapy. No immune deficiencies. BREAST: Denies current breast lumps, pain or nipple discharge. PHYSICAL EXAM: VITALS: Reviewed CONSTITUTIONAL: Well developed and in no acute distress. EYES: Conjuctivae without sclera icterus. Pupils are equally round and reactive to light. Extraocular movements grossly intact. HEAD, EARS, NOSE, THROAT: Moist buccal mucosa. Head is atraumatic, normocephalic. Hears conversational speech. No nasal drainage. NECK: Supple. No JV distention. RESPIRATORY: Non-labored respirations and equal bilateral excursions. No gross wheezes. CARDIOVASCULAR: Regular rate and rhythm. ABDOMEN: Soft. Mild distention. No peritonitis. Small 4 cm bruising along the right lower abdominal wall. Mild bilateral lower abdominal tenderness. MUSCULOSKELETAL: Nail and fingers with good capillary refill. No cyanosis. SKIN: Warm and well perfused with good skin turgor. NEUROLOGIC: Cranial nerves I through XII grossly intact. Sensation upper and extremities intact. No focal or lateralizing signs. PSYCH: Appropriate affect. Alert and oriented to person, place and time. CLINCAL LABS: Reviewed. Hemoglobin dropped from 13-10.0 last 5 days. IMAGING: Independently reviewed CT of the abdomen and pelvis with bilateral rectus sheath hematoma with lower pelvic fluid collection at the bladder suspicious for pelvic hematoma. RADIOLOGY: Report reviewed. CT of the head demonstrates ischemic changes of the brain. Nasal bridge fracture identified. Bilateral rectus sheath hematoma with fluid Collection of the pelvis. Large pre-existing paraesophageal hiatal hernia ASSESSMENT: 1. Adverse event from subcutaneous Lovenox therapeutic dose of rectus sheath he matoma 2. Acute blood loss anemia hemoglobin dropped from 13-10.0 and 5 days with anticoagulant 3. Large paraesophageal hiatal hernia 4. Bilateral rectus sheath hematoma 5. Pelvic hematoma PLAN: 1. With her recent hospitalization in a facility less than 10 days ago, family and patient wanted transfer back to [facility] as treatment started at that facility. 2. Recommend immediate reversal of Lovenox secondary to acute bleed 3. With patient's intolerance of subcu anticoagulant, may benefit from Davi filter placement. Emergency placement of [place] filter not a vailable at current facility, hence recommend transfer to [facility] with recent hospitalization less than 10 days ago 4. With patient's acute presentation, transfusion of blood with symptomatic hypotension from acute blood loss anemia advised and available during transfer Thank you for this kind consultation. Past Medical History Past Medical History: Asthma, Deep Vein Thrombosis (DVT), GERD/Reflux, Hyperlipidemia, Hypertension, Myocardial Infarction (PA), Osteoarthritis (OA), Pulmonary Embolus (PE) Additional Past Medical History / Comment(s): anemia, [id number] diet and checks CBG., skin cancer, states PA 20 yrs ago., States unable to walk distance. OSTEOPOROSIS. Last Myocardial Infarction Date:: 20 yrs ago? History of Any Multi-Drug Resistant Organisms: None Reported Past Surgical History: Section, Joint Replacement Additional Past Surgical History / Comment(s): x2, Bilateral Total knees., cataracts. Past Anesthesia/Blood Transfusion Reactions: Motion Sickness, Postoperative Nausea & Vomiting (PONV) Past Psychological History: Anxiety, Depression Smoking Status: Never smoker Past Alcohol Use History: None Reported Past Drug Use History: None Reported - Past Family History Mother Family Medical History: Deep Vein Thrombosis (DVT) Sister(s) Family Medical History: Cancer, Deep Vein Thrombosis (DVT) Medications and Allergies Home Medications Medication Instructions Recorded Confirmed Type Lisinopril [Zestril] 10 mg PO HS 10/17/14 10/27/19 History Sertraline HCl [Zoloft] 200 mg PO HS 10/17/14 10/27/19 History Albuterol Inhaler [Ventolin Hfa 1 - 2 puff INHALATION Q6HR PRN 02/19/18 10/27/19 History Inhaler] Atorvastatin Calcium [Lipitor] 10 mg PO HS 02/19/18 10/27/19 History Ferrous Sulfate [Feosol] 65 mg PO DAILY 02/19/18 10/27/19 History Denosumab [Prolia] 60 mg SQ Q30D 10/27/19 10/27/19 History Omeprazole 40 mg PO HS 10/27/19 10/27/19 History Allergies Allergy/AdvReac Type Severity Reaction Status Date / Time No Known Allergies Allergy Verified 10/27/19 14:31 Surgical - Exam Vital Signs Pulse Resp BP Pulse Ox 73 18 79/49 100 11/07/19 09:49 11/07/19 09:49 11/07/19 09:49 11/07/19 09:49 Results - Labs 11/07/19 10:01 11/07/19 10:01 Abnormal Lab Results - Last 24 Hours (Table) 11/07/19 11/07/19 11/07/19 Range/Units 10:01 10:01 10:02 WBC 11.1 H (3.8-10.6) k/uL RBC 3.51 L (3.80-5.40) m/uL Hgb 10.1 L D (11.4-16.0) gm/dL Hct 31.2 L (34.0-46.0) % Neutrophils # 9.2 H (1.3-7.7) k/uL Chloride 109 H (98-107) mmol/L BUN 39 H (7-17) mg/dL Creatinine 1.42 H (0.52-1.04) mg/dL Glucose 180 H (74-99) mg/dL POC Glucose (mg/dL) 166 H (75-99) mg/dL ALT 38 H (4-34) U/L Total Protein 5.5 L (6.3-8.2) g/dL Albumin 3.1 L (3.5-5.0) g/dL Urine Appearance (Clear) Urine Protein (Negative) Hyaline Casts (0-2) /lpf Urine Mucus (None) /hpf Stool Occult Blood (Negative) 11/07/19 11/07/19 Range/Units 11:49 11:50 WBC (3.8-10.6) k/uL RBC (3.80-5.40) m/uL Hgb (11.4-16.0) gm/dL Hct (34.0-46.0) % Neutrophils # (1.3-7.7) k/uL Chloride (98-107) mmol/L BUN (7-17) mg/dL Creatinine (0.52-1.04) mg/dL Glucose (74-99) mg/dL POC Glucose (mg/dL) (75-99) mg/dL ALT (4-34) U/L Total Protein (6.3-8.2) g/dL Albumin (3.5-5.0) g/dL Urine Appearance Cloudy H (Clear) Urine Protein 1+ H (Negative) Hyaline Casts 50 H (0-2) /lpf Urine Mucus Moderate H (None) /hpf Stool Occult Blood Positive H (Negative) Diabetes panel 11/07/19 Range/Units 10:01 Sodium 141 (137-145) mmol/L Potassium 4.6 (3.5-5.1) mmol/L Chloride 109 H (98-107) mmol/L Carbon Dioxide 24 (22-30) mmol/L BUN 39 H (7-17) mg/dL Creatinine 1.42 H (0.52-1.04) mg/dL Glucose 180 H (74-99) mg/dL Calcium 8.8 (8.4-10.2) mg/dL AST 35 (14-36) U/L ALT 38 H (4-34) U/L Alkaline Phosphatase 53 (38-126) U/L Total Protein 5.5 L (6.3-8.2) g/dL Albumin 3.1 L (3.5-5.0) g/dL Calcium panel 11/07/19 Range/Units 10:01 Calcium 8.8 (8.4-10.2) mg/dL Albumin 3.1 L (3.5-5.0) g/dL Pituitary panel 11/07/19 Range/Units 10:01 Sodium 141 (137-145) mmol/L Potassium 4.6 (3.5-5.1) mmol/L Chloride 109 H (98-107) mmol/L Carbon Dioxide 24 (22-30) mmol/L BUN 39 H (7-17) mg/dL Creatinine 1.42 H (0.52-1.04) mg/dL Glucose 180 H (74-99) mg/dL Calcium 8.8 (8.4-10.2) mg/dL Adrenal panel 11/07/19 Range/Units 10:01 Sodium 141 (137-145) mmol/L Potassium 4.6 (3.5-5.1) mmol/L Chloride 109 H (98-107) mmol/L Carbon Dioxide 24 (22-30) mmol/L BUN 39 H (7-17) mg/dL Creatinine 1.42 H (0.52-1.04) mg/dL Glucose 180 H (74-99) mg/dL Calcium 8.8 (8.4-10.2) mg/dL Total Bilirubin 0.5 (0.2-1.3) mg/dL AST 35 (14-36) U/L ALT 38 H (4-34) U/L Alkaline Phosphatase 53 (38-126) U/L Total Protein 5.5 L (6.3-8.2) g/dL Albumin 3.1 L (3.5-5.0) g/dL Assessment and Plan (1) Acute blood loss anemia Current Visit: Yes Status: Acute Code(s): D62 - ACUTE POSTHEMORRHAGIC ANEMIA SNOMED Code(s): 864216557 (2) Pulmonary embolism, bilateral Current Visit: Yes Status: Acute Code(s): I26.99 - OTHER PULMONARY EMBOLISM WITHOUT ACUTE COR PULMONALE SNOMED Code(s): 20895134 (3) Acute bilateral deep vein thrombosis (DVT) of femoral veins Current Visit: Yes Status: Acute Code(s): I82.413 - ACUTE EMBOLISM AND THROMBOSIS OF FEMORAL VEIN, BILATERAL SNOMED Code(s): 938627018764932 (4) Adverse effect of anticoagulants, initial encounter Current Visit: Yes Status: Acute Code(s): T45.515A - ADVERSE EFFECT OF ANTICOAGULANTS, INITIAL ENCOUNTER SNOMED Code(s): 747916444 (5) Rectus sheath hematoma Current Visit: Yes Status: Acute Code(s): S30.1XXA - CONTUSION OF ABDOMINAL WALL, INITIAL ENCOUNTER SNOMED Code(s): 074180444 (6) Peritoneal hematoma Current Visit: Yes Status: Acute Code(s): S36.81XA - INJURY OF PERITONEUM, INITIAL ENCOUNTER SNOMED Code(s): 244085378 (7) Paraesophageal hiatal hernia Current Visit: Yes Status: Acute Code(s): K44.9 - DIAPHRAGMATIC HERNIA WITHOUT OBSTRUCTION OR GANGRENE SNOMED Code(s): 6066326 (8) Esophageal ulcer Current Visit: Yes Status: Acute Code(s): K22.10 - ULCER OF ESOPHAGUS WITHOUT BLEEDING SNOMED Code(s): 21069710 (9) Hypotension due to blood loss Current Visit: Yes Status: Acute Code(s): I95.89 - OTHER HYPOTENSION SNOMED Code(s): 46164055 (10) Syncope due to orthostatic hypotension Current Visit: Yes Status: Acute Code(s): I95.1 - ORTHOSTATIC HYPOTENSION SNOMED Code(s): 644039930 (11) Family history of deep vein thrombosis Current Visit: Yes Status: Acute Code(s): Z82.49 - FAMILY HX OF ISCHEM HEART DIS AND OTH DIS OF THE CIRC SYS SNOMED Code(s): 101598320
[2019-11-07 13:19] VITALS: BP 66/41; PULSE 72; TEMP 97.6
== END 2019-11-07 13:19 | disposition short-term general hospital (02) ==
LOC: EC 09:47
DX: S30.1XXA Contusion of abdominal wall, initial encounter (principal); S00.33XA Contusion of nose, initial encounter; S00.83XA Contusion of other part of head, initial encounter; D62 Acute posthemorrhagic anemia; I26.99 Other pulmonary embolism without acute cor pulmonale; I82.413 Acute embolism and thrombosis of femoral vein, bilateral; T45.515A Adverse effect of anticoagulants, initial encounter; S36.81XA Injury of peritoneum, initial encounter; K44.9 Diaphragmatic hernia without obstruction or gangrene; K22.10 Ulcer of esophagus without bleeding; I95.1 Orthostatic hypotension; J45.909 Unspecified asthma, uncomplicated; K21.9 Gastro-esophageal reflux disease without esophagitis; E78.5 Hyperlipidemia, unspecified; I10 Essential (primary) hypertension; I25.2 Old myocardial infarction; M19.90 Unspecified osteoarthritis, unspecified site; M81.0 Age-related osteoporosis without current pathological fracture; F32.9 Major depressive disorder, single episode, unspecified; F41.9 Anxiety disorder, unspecified; Z79.01 Long term (current) use of anticoagulants; Z79.899 Other long term (current) drug therapy; Z85.828 Personal history of other malignant neoplasm of skin; Z96.653 Presence of artificial knee joint, bilateral; Z82.49 Family history of ischemic heart disease and other diseases of the circulatory system; W19.XXXA Unspecified fall, initial encounter; Y93.89 Activity, other specified; Y92.009 Unspecified place in unspecified non-institutional (private) residence as the place of occurrence of the external cause
CPT/HCPCS: 36415; 93005; 86900; 86901; 80053; 82550; 83735; 84484; 85025; 85610; 85730; 86850; 86920; 82272; 81001; 70160; 71046; 70450; 74177; 99291; 96374; 96361 ×3; J2720; Q9967

== ENCOUNTER → 2020-06-14 | Outpatient (CLI) | payer MEDICARE, BC ==
[~2020-06-14] MED LIST changes: +DENOSUMAB 60 MG/ML 1 ML SYRINGE SQ NR; -LACTATED RINGERS 1,000 ML IV SCH; -LIDOCAINE 1% 20 ML VIAL (10MG/ML) FOR IV START INTRADERMA PRN; -ONDANSETRON 4 MG/2 ML VIAL IVP ONE
[2020-06-14 14:18] VITALS: BP 108/70; PULSE 85; RESP 16; TEMP 98.3
== END | disposition home or self-care (01) ==
LOC: PROCWHC3 13:57
PROVIDERS: ATTEND Family Medicine
DX: M81.0 Age-related osteoporosis without current pathological fracture (principal)
CPT/HCPCS: 96372; J0897

== ENCOUNTER → 2020-07-24 | Outpatient (CLI) | payer MEDICARE, BC ==
--- NOTE | 2020-07-24 14:48 | US ---
EXAMINATION TYPE: US venous doppler duplex LE DATE OF EXAM: 07/24/2020 2:30 PM COMPARISON: NONE CLINICAL HISTORY: R22.42 R22.41 swelling michelle lower legs. PE hx of DVT has nirmal filter cant take blood thinners. SIDE PERFORMED: Bilateral TECHNIQUE: The lower extremity deep venous system is examined utilizing real time linear array sonog valeria with graded compression, doppler sonography and color-flow sonography. VESSELS IMAGED: External Iliac Vein (EIV) Common Femoral Vein Deep Femoral Vein Greater Saphenous Vein * Femoral Vein Popliteal Vein Small Saphenous Vein * Proximal Calf Veins (* superficial vessels) Right Leg: Chronic area seen distal Popliteal Vein. Left Leg: Chronic clot seen Femoral Vein to Popliteal Vein. Grayscale, color doppler, spectral doppler imaging performed of the deep veins of the bilateral lower extremities. There is some incomplete compressibility bilaterally with diminished color flow. IMPRESSION: Chronic DVT bilaterally present to a greater extent in the left lower extremity versus r ight. No expansile complete occlusive acute DVT identified bilaterally.
--- NOTE | 2020-07-24 15:54 | CT ---
EXAMINATION TYPE: CT angio chest DATE OF EXAM: 07/24/2020 COMPARISON: CT chest dated 10/28/2019 HISTORY: Aneurysm CONTRAST: CTA thoracic aorta with 3-D reconstruction is performed without Oral Contrast and with IV Contrast, p atient injected with 80 mL of Isovue 370. Contrast CTA of the thoracic aorta was performed from the lung apex through the upper abdomen. 3D re construction imaging obtained at a separate workstation. CT Chest: THORACIC AORTA: No evidence for thoracic aortic aneurysm. Mild atheromatous changes seen. There is n o evidence for dissection or periaortic collection. LUNGS: The lungs are clear and free of infiltrate or atelectasis. Linear parenchymal scarring is not ed at the lung bases. No pulmonary nodule or mass is detected. No pleural effusion or CT evidence of interstitial lung disease. MEDIASTINUM: The stomach is intrathoracic in location. No evidence for mediastinal hematoma. The h eart is not enlarged. No evidence for mediastinal mass or adenopathy. HILAR STRUCTURES: No evidence for mass. No hilar adenopathy is appreciated. OTHER: No significant abnormality. IMPRESSION- 1. No evidence for aneurysm. 2. Intrathoracic stomach.
== END | disposition home or self-care (01) ==
LOC: RADCTMAIN 13:15
PROVIDERS: ATTEND Internal Medicine Hematology & Oncology
DX: I82.503 Chronic embolism and thrombosis of unspecified deep veins of lower extremity, bilateral (principal); E78.5 Hyperlipidemia, unspecified; R22.43 Localized swelling, mass and lump, lower limb, bilateral
CPT/HCPCS: 82565; 84520; 93970; 71275; Q9967

== ENCOUNTER → 2021-02-15 | Outpatient (CLI) | payer MEDICARE, BC ==
[2021-02-15 13:10] VITALS: BP 101/69; PULSE 81; RESP 16; TEMP 98.2
== END ==
LOC: PROCWHC3 12:58
PROVIDERS: ATTEND Family Medicine
DX: M81.0 Age-related osteoporosis without current pathological fracture (principal)
CPT/HCPCS: 96372; J0897

== ENCOUNTER → 2021-06-05 | Outpatient (CLI) | payer MEDICARE, BC ==
--- NOTE | 2021-06-05 11:43 | US ---
EXAMINATION TYPE: US venous doppler duplex LE DATE OF EXAM: 06/05/2021 10:50 AM COMPARISON: US 07/24/2020 CLINICAL HISTORY: R22.42 SWELLING LT LOWER LIMB,R22.41 SWELLING LT LOWER LIMB. History of chronic DVT , patient does not take blood thinners at this time SIDE PERFORMED: Bilateral TECHNIQUE: The lower extremity deep venous system is examined utilizing real time linear array sonog valeria with graded compression, doppler sonography and color-flow sonography. VESSELS IMAGED: Common Femoral Vein Deep Femoral Vein Greater Saphenous Vein * Femoral Vein Popliteal Vein Small Saphenous Vein * Proximal Calf Veins (* superficial vessels) Right Leg: Negative for DVT Left Leg: Positive for non-occluding DVT in the left femoral and popliteal vein IMPRESSION: Positive for non-occluding DVT in the left femoral and popliteal vein
== END | disposition home or self-care (01) ==
LOC: RADUSWWP 10:19
PROVIDERS: ATTEND Internal Medicine Hematology & Oncology
DX: I82.412 Acute embolism and thrombosis of left femoral vein (principal); I82.432 Acute embolism and thrombosis of left popliteal vein
CPT/HCPCS: 93970

== ENCOUNTER → 2022-02-04 | Outpatient (CLI) | payer MEDICARE, BC ==
[2022-02-04 10:47] VITALS: BP 130/81; PULSE 77; RESP 16; TEMP 97.5
== END ==
LOC: PROCWHC3 10:34
PROVIDERS: ATTEND Family Medicine
DX: M81.0 Age-related osteoporosis without current pathological fracture (principal)
CPT/HCPCS: 96372; J0897

== ENCOUNTER → 2023-01-30 | Outpatient (CLI) | payer MEDICARE, BC ==
[2023-01-30 10:38] VITALS: BP 114/62; PULSE 78; RESP 16; TEMP 98.3
== END ==
LOC: PROCWHC3 10:21
PROVIDERS: ATTEND Family Medicine
DX: M81.0 Age-related osteoporosis without current pathological fracture (principal)
CPT/HCPCS: 96372; J0897

== ENCOUNTER → 2024-01-26 | Outpatient (CLI) | payer MEDICARE ==
--- NOTE | 2024-01-27 09:50 | MM ---
Reason for Exam: Screening (asymptomatic). Last mammogram was performed 6 year(s) and 10 month(s) ago. Patient History: Menarche at age 11. First Full-Term at age 18. Postmenopausal. Patient used Hormonal Contraceptives for 10 years. 1996, Benign Core Biopsy on the left side. Sister had breast cancer at or over age 50. Prior Study Comparison: 07/06/2013 Bilateral Screening Mammogram, [facility]. 04/21/2015 Bilateral Screening Mammogram, [facility]. 03/17/2017 Bilateral Screening Mammogram, [facility]. Tissue Density: There are scattered areas of fibroglandular density. Findings: Analyzed By CAD. Left breast biopsy clip. There is no suspicious group of microcalcifications or new suspicious mass. Overall Assessment: Benign, BI-RAD 2 Management: Screening Mammogram of both breasts in [address] [facility] will attempt to contact patient to return for supplemental views and ultrasound if indicated. Patient should continue monthly self-breast exams. A clinical breast exam by your physician is recommended on an annual basis. This exam should not preclude additional follow-up of suspicious palpable abnormalities. Note on Poppy scores and lifetime risk: 1. A Poppy score greater than 3% is considered moderate risk. If this is the case, consider specialist referral to assess eligibility for a risk reducing agent. 2. If overall lifetime risk for the development of breast cancer is 20% or higher, the patient may qualify for future screening with alternating mammogram and breast MRI. Electronically signed and approved by: Daren Ricks DO
--- NOTE | 2024-01-27 12:13 | BD ---
EXAMINATION TYPE: Axial Bone Density DATE OF EXAM: 01/26/2024 CLINICAL HISTORY: 84 years old Female. ICD-10 CODE: M81.0 AGE RELATED OSTEO Height: 61 Weight: 160 FRAX RISK QUESTIONS: Alcohol (3 or more units per day): no Family History (Parent hip fracture): no Glucocorticoids (More than 3mos): no (Ex: prednisone, prednisolone, methylprednisolone, dexamethasone, and hydrocortisone). History of Fracture in Adulthood: no Secondary Osteoporosis: 1. Type 1 Diabetes: no 2. Hyperthyroidism: no 3. Menopause before 45: no 4. Malnutrition: no 5. Chronic liver disease: no Rheumatoid Arthritis: yes Current Tobacco Use: no RISK FACTORS HISTORY OF: Surgery to Spine/Hip(right/left)/Wrist (right/left): no EXAM MEASUREMENTS: Bone mineral densitometry was performed using the [employer] Resilient System. Bone mineral density as measured about the Lumbar spine is: ----- L1-L4(G/cm2): 1.182 T Score Values are as follows: ----- L1: -0.1 ----- L2: 0.4 ----- L3: 0.3 ----- L4: -0.5 ----- L1-L4: 0.0 Z Score Values are as follows: ----- L1: 1.6 ----- L2: 2.1 ----- L3: 2.0 ----- L4: 1.2 ----- L1-L4: 1.7 Bone mineral density has: increased 4.0 % since study of: 11.25.2018 Bone mineral density about the R hip (g/cm2): 1.005 Bone mineral density about the L hip (g/cm2): 0.965 T Score values are as follows: -----R Neck: -1.3 -----L Neck: -1.5 -----R Total: 0.0 -----L Total: -0.3 Z Score values are as follows: -----R Neck: 1.0 -----L Neck: 0.8 -----R Total: 2.1 -----L Total: 1.8 Bone mineral density has: decreased -6.1 % since study of: 11.25.2018 FRAX%s: The graph provided illustrates a 16.1 % chance for a major osteoporotic fx and a 4.7% chance for the hips probability for fx in 10 years time. IMPRESSION: Osteopenia (T Score between -2.5 and -1). There is slightly increased risk of fracture and the patient may be considered for treatment. Re-Screen 2-5 years. NOTE: T-SCORE=SD OF THE YOUNG ADULT MEAN.
== END | disposition home or self-care (01) ==
LOC: RADBDWWP 14:16
PROVIDERS: ATTEND Family Medicine
DX: Z12.31 Encounter for screening mammogram for malignant neoplasm of breast (principal); M81.0 Age-related osteoporosis without current pathological fracture; M85.89 Other specified disorders of bone density and structure, multiple sites; Z80.3 Family history of malignant neoplasm of breast; Z78.0 Asymptomatic menopausal state
CPT/HCPCS: 77063; 77067; 77080

== ENCOUNTER → 2024-06-25 | Outpatient (CLI) | payer MEDICARE | END | disposition home or self-care (01) | LOC: LABPRL 13:50 | PROVIDERS: ATTEND Nurse Practitioner Family | DX: I12.9 Hypertensive chronic kidney disease with stage 1 through stage 4 chronic kidney disease, or unspecified chronic kidney disease (principal); N18.9 Chronic kidney disease, unspecified; D50.9 Iron deficiency anemia, unspecified | CPT/HCPCS: 80053; 82728; 83540; 83550; 85025 ==

== ENCOUNTER → 2024-07-19 | Outpatient (CLI) | payer MEDICARE ==
[2024-07-19] MEDS: DENOSUMAB 60 MG/ML 1 ML SYRINGE SQ NR (14:14)
[2024-07-19 14:17] VITALS: BP 117/71; PULSE 69; RESP 16; TEMP 97.7
== END ==
LOC: PROCWHC3 14:06
PROVIDERS: ATTEND Family Medicine
DX: M81.0 Age-related osteoporosis without current pathological fracture (principal)
CPT/HCPCS: 96372

== ENCOUNTER 2025-01-17 13:46 | Outpatient (CLI) | payer MEDICARE ==
[2025-01-17 14:12] VITALS: BP 129/74; PULSE 79; RESP 16; TEMP 98
[2025-01-17] MEDS: DENOSUMAB 60 MG/ML 1 ML SYRINGE SQ ONE (14:13)
== END 2025-01-18 09:16 | disposition home or self-care (01) ==
LOC: PROCWHC3 13:46
PROVIDERS: ATTEND Family Medicine
DX: M81.0 Age-related osteoporosis without current pathological fracture (principal)
CPT/HCPCS: 96372; J0897

== ENCOUNTER → 2025-03-09 | Outpatient (CLI) | payer MEDICARE ==
--- NOTE | 2025-03-09 10:19 | MM ---
Reason for Exam: Screening (asymptomatic). Last mammogram was performed 1 year(s) and 1 month(s) ago. Patient History: Menarche at age 11. First Full-Term at age 18. Postmenopausal. Patient used Hormonal Contraceptives for 10 years. 1996, Benign Core Biopsy on the left side. Sister had breast cancer at or over age 50. Prior Study Comparison: 07/06/2013 Bilateral Screening Mammogram, [facility]. 04/21/2015 Bilateral Screening Mammogram, [facility]. 03/17/2017 Bilateral Screening Mammogram, [facility]. 01/26/2024 Bilateral MG 3D screening mammo w/cad, [facility]. Tissue Density: The breasts are heterogeneously dense, which may obscure small masses. Findings: Analyzed By CAD. There is a mammotome biopsy clip in the left breast redemonstrated. Benign-appearing vascular calcification bilaterally is redemonstrated. Benign-appearing left axillary lymph nodes are redemonstrated. There is no suspicious new group of microcalcifications or new suspicious mass in either breast. Overall Assessment: Benign, BI-RAD 2 Management: Screening Mammogram of both breasts in 1 year. . Patient should continue monthly self-breast exams. A clinical breast exam by your physician is recommended on an annual basis. This exam should not preclude additional follow-up of suspicious palpable abnormalities. Note on Poppy scores and lifetime risk: 1. A Poppy score greater than 3% is considered moderate risk. If this is the case, consider specialist referral to assess eligibility for a risk reducing agent. 2. If overall lifetime risk for the development of breast cancer is 20% or higher, the patient may qualify for future screening with alternating mammogram and breast MRI. [facility], , 03/09/2025 10:16 AM. Electronically signed and approved by: Jeremy Ag M.D.
== END | disposition home or self-care (01) ==
LOC: RADMAMWWP 09:32
PROVIDERS: ATTEND Family Medicine
DX: Z12.31 Encounter for screening mammogram for malignant neoplasm of breast (principal); R92.333 Mammographic heterogeneous density, bilateral breasts; R92.1 Mammographic calcification found on diagnostic imaging of breast; Z78.0 Asymptomatic menopausal state; Z92.0 Personal history of contraception; Z80.3 Family history of malignant neoplasm of breast
CPT/HCPCS: 77063; 77067